=== PATIENT | male | born 1975 | race Caucasian/White ===

== ENCOUNTER 2018-09-24 07:57 | Emergency (ER) | payer BC ==
[2018-09-24] MEDS ORDERED: SODIUM CHLORIDE 0.9% 1,000 ML IV ONE (08:31)
[2018-09-24] MEDS ORDERED: DEXAMETHASONE 10 MG/ML VIAL IV STA (08:31)
[2018-09-24] MEDS ORDERED: AMPICILLIN/SULBACTAM 3 GM in SODIUM CHLORIDE 0.9% MINIBAG 100 ML IV STA (08:39)
--- NOTE | 2018-09-24 08:45 | ED Physician Documentation ---
History of Present Illness - Stated complaint Stated Complaint: SORE THROAT - Chief complaint Chief Complaint: Heent - Additonal information Additional information: hx from pt and 42 male to ED 2 concerns 1) severe sore throat - seen at walk in yesterday and + rapid strep an rx zmax but gettign worse 2) also he is s/p cochlear implant and has a hx mastoiditis and there is swelling erythema and discharge from the implant behind his R ear Review of Systems Constitutional: denies: Fever Ears: reports: Ear pain Throat: reports: Sore throat Respiratory: denies: Cough GI: denies: Nausea, Vomiting, Diarrhea Endocrine: denies: Easy bruising / bleeding Immunocompromised: denies: Immunocompromised PD PAST MEDICAL HISTORY - Past Surgical History Ortho: Other HEENT: Other - Present Medications Home Medications: Ambulatory Orders Medication Instructions Recorded Confirmed Amox/Clav 875/125 [Augmentin] 1 each PO Q12H #20 tablet 09/24/18 Azithromycin 1 09/24/18 Hydrocodone/Acetaminophen 1 09/24/18 [Hydrocodone-Acetamin 5-325 mg] - Allergies Allergies/Adverse Reactions: Allergies Allergy/AdvReac Type Severity Reaction Status Date / Time No Known Drug Allergies Allergy Verified 09/24/18 08:10 - Social History Does the pt smoke?: No Smoking Status: Never smoker Does the pt drink ETOH?: No Does the pt have substance abuse?: No PD ED PE NORMAL - Vitals Vital signs reviewed: Yes - HEENT HEENT: Other (marked erythema and swelling but no trismus or STEAM SHOVELMAN, no pain with tracheal manipulation, metal post emplanted to r mastoid region with focal STS and small purulent dc which was cultured, no erthythema warmth or bogginess). No: Ears normal (R serous otitis) - Neck Neck: Supple, no meningeal sign - Cardiac Cardiac: RRR - Respiratory Respiratory: No respiratory distress, Clear bilaterally - Derm Derm: Normal color - Neuro Neuro: Alert and oriented X 3 Results - Vitals Vitals: Vital Signs - 24 hr 09/24/18 09/24/18 09/24/18 08:06 09:47 12:40 Temperature 36.2 C L 36.4 C L Heart Rate 77 69 95 Respiratory 18 18 16 Rate Blood Pressure 155/95 H 152/81 H 140/92 H O2 Saturation 96 98 96 Oxygen O2 Source Room air - Labs Labs: Microbiology 09/24/18 08:25 Wound Culture - Preliminary Head PD MEDICAL DECISION MAKING - ED course ED course: strep throat with marked swelling but not STEAM SHOVELMAN - gave decadron and IVF also more concerning in infected cochlear implant post in mastoid that appears acutely infected no hx MRSA could be strep staph from ear/throat skin also could be psuedomonas for now have culture of dc pending gave IV unasyn no ENT services at 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) addendum - pt called me back and he was able to contact his prior ENT in [place] - per his report she agreed with the unasyn and augmentin, added a topical prescription antibiotic ointment, recommended he clean the site with 50/50 H2O2/H2O, she has recommended a "healing cap" to go over the hardware, and has referred him to a local [place] ENT Dr Conde Departure - Departure Disposition: 01 Home, Self Care Clinical Impression: BAHA cochlear implant bone infection Pharyngitis Qualifiers: Pharyngitis/tonsillitis etiology: unspecified etiology Qualified Code(s): J02.9 - Acute pharyngitis, unspecified Condition: Good Instructions: ED Strep Pharyngitis Conf Prescriptions: Amox/Clav 875/125 [Augmentin] 1 each PO Q12H #20 tablet Comments: The strep throat will improve with the antibiotics I am much more concerned about the infected cochlear implant. I am trying to consult a local ENT to see if it needs to be debrided or removed - or if it is OK to treat with antibiotics. I will call you when I have gotten input from the specialist - they may recommend you be admitted for IV antibiotics so you may have to come back later today if that is what they advise In the mean time take the augmentin I have prescribed Return to see me tomorrow morning at 8AM for a recheck - promise me you will come back a recheck because infected hardware in the skull could be a very serious issue Discharge Date/Time: 09/24/18 12:43
[2018-09-24] MEDS ORDERED: oxyCODONE 5 MG TABLET PO STA (12:23)
[2018-09-24 12:41] VITALS: BP 140/92
== END 2018-09-24 12:43 | disposition home or self-care (01) ==
LOC: ED 07:57
DX: J02.9 Acute pharyngitis, unspecified (principal); T85.79XA Infection and inflammatory reaction due to other internal prosthetic devices, implants and grafts, initial encounter; H66.91 Otitis media, unspecified, right ear
CPT/HCPCS: 87070; 87077; 87205; 96365; 99283; A9270

== ENCOUNTER 2019-02-08 15:02 | Outpatient (CLI) | payer BC | END 2019-02-08 15:03 | disposition home or self-care (01) | LOC: SC 15:02 | PROVIDERS: ATTEND Internal Medicine Pulmonary Disease | DX: G47.10 Hypersomnia, unspecified (principal); G47.8 Other sleep disorders; R06.81 Apnea, not elsewhere classified; R41.89 Other symptoms and signs involving cognitive functions and awareness; R06.83 Snoring | CPT/HCPCS: 99203; 99212 ==

== ENCOUNTER 2019-02-21 19:30 | Outpatient (CLI) | payer BC | END 2019-02-21 23:59 | disposition home or self-care (01) | LOC: SC 19:30 | PROVIDERS: ATTEND Internal Medicine Pulmonary Disease | DX: G47.33 Obstructive sleep apnea (adult) (pediatric) (principal) | CPT/HCPCS: 95806 ==

== ENCOUNTER 2019-04-19 09:19 | Outpatient (CLI) | payer BC ==
--- NOTE | 2019-04-19 09:40 | CONSULTATION NOTE ---
Information from patient questionnaire entered by Sasha Guadalupe. I have reviewed and concur with the information entered by Sasha Guadalupe. This document represents the service I personally performed and the decisions made by me, Ena Beebe RN, MSN, STEAMER TENDER. - History of Present Illness RAJEEV COSTELLO returns for follow up of the recently performed type 3 home sleep study (HST). The home sleep study showed obstructive sleep apnea / hypopnea with an AHI of 18.7 at 4% desaturation and lowest oxygen saturation of 74.6%. There were 129 scored apneas and 16 hypopneas with supine AHI 61.1 and non-supine AHI 10.0. The patient informed of these findings. I explained the pathophysiology behind obstructive sleep apnea. We then spent quite a bit of time discussing different treatment options. For mild obstructive sleep apnea, surgery and oral appliance are alternatives to nasal CPAP therapy but in moderate or severe cases, nasal CPAP is the most effective and reliable treatment. I reviewed the impact of weight changes on sleep apnea and strongly recommended losing weight. Patient has lost 6 pounds since seen. After some discussion, the patient opted to go with the nasal CPAP therapy. Nasal autoCPAP set at [id number] will be ordered with rationale explained. A manual titration study will be ordered if unable to find optimal pressure with office adjustments. I explained how CPAP machine works with sample devices RespirEventdoos Dreamstation and [email or web address] [id number] and what to expect when using the machine. Using CPAP every night in order to get used to it was emphasized. Patient advised to put CPAP mask on before getting into bed so as not to fall asleep without CPAP. To assist acclimation to CPAP use, it could also use for a short time during day while reading or watching TV. The patient was instructed to call the CPAP supplier to discuss any mechanical problem that may occur. If the mask given is uncomfortable or is difficult to keep on through the night even with adjustment, contact the CPAP supplier as many will replace with another mask style if notified before 30 days. If snoring or perceives is not getting enough air or too much air from the machine, notify this office. [facility] patient education PAP tips reviewed and given to patient. Patient counseled not drink alcohol less than 4 hours before bedtime as it can increase snoring and apnea. Patient was cautioned about risks of drowsy driving until sleepiness symptoms resolve. Patient has noted drowsiness on long distance driving. [facility] patient education on snoring and sleep apnea given and reviewed. Initial [place] Sleepiness Scale score: 10 Current [place] Sleepiness Scale score: 14 - Allergies/Medications No drug allergies known Currently taking: Levothyoxine Sodium 75mcg tab one daily MNS E Metabolic System Vitamins as directed Allergies and home medications reviewed: Yes - Review of Systems Review of systems same as previous: Yes Cardiovascular: denies: high blood pressure, palpitations, chest pain, irregular heart rate or pulse, leg or foot swelling, have to sleep sitting up, other: Respiratory: denies: shortness of breath, wheeze, sputum production, chronic cough, other: Gastrointestinal: denies: heartburn, difficulty swallowing, nausea, vomitting, diarrhea, abdominal pain, other: Urinary: denies: incontinence, frequency, urgency, impotence, other: Neurological: denies: headaches, seizure, head trauma, disorientation, speech dysfunction, gait or balance problems, fainting or unconsciousness, other: Psychiatric: denies: Attention Deficit Hyperactivity, anxiety, depression, mood disorder, claustrophobia, other: Ear/Nose/Throat: denies: nasal congestion, sinus problems, nose bleeds, dry mouth/throat, hoarseness, injury to nose, tonsillectomy, wisdom teeth removed, other: Endocrine: reports: thyroid disease. denies: history of goiter, sluggishness, too hot or cold, excessive thirst, increased appetite, increased urination, unexplained weakness, other: Musculoskeletal: denies: joint pain, neck pain, back pain, joint swelling, muscle pain or cramping, mobility problems, other: Immunologic: denies: sneezing, rash, itching, allergies to food or environment, other: - Physical Exam Blood Pressure: 130/80 Cuff size: long Heart Rate: 74 O2 Saturation: 98 Height: 5 ft 10.5 in Weight (kg): 103.873 kg (lost 6 pounds) Body Mass Index: 32.3 BMI Classification: Class 1 - Impression 1. Obstructive Sleep Apnea-Hypopnea Syndrome, moderate, with lowest oxygen saturation of 74.6. Obviously this is the cause of the patients symptoms of unrefreshed sleep, and excessive daytime sleepiness. As mentioned above, the patient will be started on nasal autoCPAP therapy with pressure set at 4-15 cmH2 O. A manual titration study will be completed if unable to find optimal treatment pressure with office adjustments. Compliance guidelines also reviewed. A copy of compliance guidelines will be given for reference at check out. Because the apnea is more severe supine, I instructed to avoid sleeping supine using pillow positioning until able to start CPAP use. He is also advised to avoid long distance driving until his sleepiness symptoms are resolved. - Plan Nasal autoCPAP therapy, pressure at 4-15 cm H2O. Attempt to lose weight. Avoid alcohol consumption near bedtime. Avoid supine sleep until using CPAP. The patient is again cautioned about driving until sleepiness completely resolves on CPAP therapy. Return one month after CPAP obtained. I will assess response to therapy and compliance at that time. I spent 100% of this 35 minute visit face to face with the patient with greater than 50% of this was spent time counseling the patient and coordination of care.
[2019-04-19 09:48] VITALS: BP 130/80
== END 2019-04-19 09:20 | disposition home or self-care (01) ==
LOC: SC 09:19
PROVIDERS: ATTEND Nurse Practitioner Family
DX: G47.33 Obstructive sleep apnea (adult) (pediatric) (principal)
CPT/HCPCS: 99212; 99214

== ENCOUNTER 2019-11-17 16:23 | Outpatient (CLI) | payer BC, OTHER ==
[2019-11-17 17:45] VITALS: BP 130/70
--- NOTE | 2019-11-17 17:45 | SLEEP CARE CONSULTATION ---
Information from patient questionnaire entered by Kenzie Campos. I have reviewed and concur with the information entered by Kenzie Campos. This document represents the service I personally performed and the decisions made by me, Ena Beebe, RN, MSN, BUSINESS SERVICES REPRESENTATIVE. History of Present Illness Previous diagnosis: Moderate, Obstructive Sleep Apnea-Hypopnea Syndrome AHI: 18.7 Reason for follow up: first compliance Equipment type: CPAP Equipment obtained from: [employer] Mask style: Nasal pillows Mask brand: Respironics Backup mask available: No (keep current mask when replaced ) Last cushion change: not since set up HPI additional information: There was a delay in getting patient set up with CPAP. Initially his prescription was sent to [place] but never set up on appointment given. Calls placed by patient and no return calls. Called here and staff called and left messaged that was not returned. Patient called a month later and still not set up. After several calls, patient was transfered to [facility] and then there was another delay and finally set up 09/14/19 even though he told them his insurance would change in September. Now his insurance has changed in September to [employer]. He was informed by [facility] that they did not take [employer] and he has not been able to get more supplies. CPAP Compliance Data - Data Reviewed with Patient Average duration of nightly device use: 6.75 Compliance rate %: 83.3 Current pressure setting (cmH2O): 4-15 Humidity settin Heated hose settin Average residual AHI: 3.2 Average large leak: 2 sec Subjective Patient concerns: reports: condensation in mask/hose (recent), other (mask starting to get looser ). denies: mask discomfort, air blowing in eyes, mask leak noise Observed to snore while using device: No Current pressure setting perceived as: comfortable On therapy, patient: reports: sleeping better, awakening more refreshed, being more awake and alert during the day, more rested overall (however, he is in s chool as well as working. ). denies: drowsiness while driving Initial [place] Sleepiness Scale score: 10 Current [place] Sleepiness Scale score: 10 Allergies and Home Medications Known drug allergies: No Home medication list reviewed: Yes (added escitalopram , atorvastatin / no other changes ) Review of Systems Review of systems same as previous: No (diagnosed with anxiety / depression and high cholesterol ) Physical Exam Blood Pressure: 130/70 Cuff size: long Heart Rate: 83 O2 Saturation: 98 Height: 5 ft 10.5 in Weight: 235 lb Weight change since last visit: gained baCK 6 POUNDS Body Mass Index: 33.2 BMI Classification: Obese Impression and Plan 1. Obstructive Sleep Apnea-Hypopnea Syndrome, moderate , with good treatment compliance and good apnea control. On CPAP therapy, the patient has better sleep quality and is more rested overall. Since he is planning on losing weight, I will not change the CPAP pressure to mean / 90% average. I explained how significant weight loss will reduce his apnea risk and CPAP pressure requirements. Symptoms to report for further pressure adjustment discussed. For recent condensation, I showed him how to increase the heated hose with rationale discussed. Nasal congestion can be reduced with increasing the CPAP humidity as shown on sample device. The heated hose can be adjusted higher if condensation with higher humidity setting. Saline nasal spray sample can also be used prior to CPAP to clear nasal secretions and wash off any nasal allergens to facilitate nasal breathing. In addition, a steamy shower before bed will often assist nasal drainage. Printed instructions given on how to change humidity and heated hose settings with rationale explaining why to change. Nasal cushions are getting looser in fit despite headgear adjustment probably due to wear and need for replacement. Thus I will update CPAP supplies. Patient's apnea severity and rationale for treatment to reduce apnea, improve sleep quality and reduce cardiovascular and cerebrovascular events was reviewed. I also reviewed the benefit of consistent device use of CPAP for depression/anxiety. Since patient has more severe apnea in supine position, patient advised to avoid supine sleep with pillow positioning if unable to use CPAP while ill or if without electricity to reduce apnea risk. After discussion,it was determined that patient has already contacted [employer] and was informed that they take 13 months to pay off the CPAP. Thus patient will have to turn in his current CPAP back to [facility] and restart with [facility] which is preferred by [facility]. I advised patient to keep current CPAP until new one received if possible to for best control of apnea and moderate hypoxia desaturations. He would like to use the Dreamstation CPAP and will be placed on prescription. * Continue CPAP pressure at 4-15 cmH2O * Transfer to [facility] and new CPAP * update CPAP supplies * Implement methods to reduce nasal congestion * Notify me if snoring with mask or feeling that the pressure is too much or too little * Attempt to lose weight * Call this office if any problems using CPAP * Return for follow up in 1 month after new device, or sooner if concerns arise Time Spent with Patient (minutes): 40 I spent 100% of this visit face to face with the patient with greater than 50% of this was spent time counseling the patient and coordination of care.
== END 2019-11-17 16:24 | disposition home or self-care (01) ==
LOC: SC 16:23
PROVIDERS: ATTEND Nurse Practitioner Family
DX: G47.33 Obstructive sleep apnea (adult) (pediatric) (principal); E66.9 Obesity, unspecified; Z68.33 Body mass index [BMI] 33.0-33.9, adult
CPT/HCPCS: 99212; 99215

== ENCOUNTER 2020-01-20 13:23 | Outpatient (CLI) | payer OTHER ==
--- NOTE | 2020-01-20 12:18 | SLEEP CARE CONSULTATION ---
Information from patient questionnaire entered by Sasha Guadalupe. I have reviewed and concur with the information entered by Sasha Guadalupe. This document represents the service I personally performed and the decisions made by me, Ena Beebe, RN, MSN, COSMETIC ASSEMBLER. History of Present Illness Service Date and Time: 01/20/2020 1130 Previous diagnosis: Moderate, Obstructive Sleep Apnea-Hypopnea Syndrome AHI: 18.7 Reason for follow up: first compliance Equipment type: CPAP Equipment obtained from: [facility] (replacement device due to insurance change) Mask style: Nasal pillows (Dreamwear) Backup mask available: No (keep current mask when replaced as spare) Last cushion change: 2 weeks Type of Sleep Study: Home sleep study HPI additional information: [facility] has not picked up old CPAP yet. Patient wonders if due to COVID. CPAP Compliance Data - Data Reviewed with Patient Average duration of nightly device use: 7h 2m Compliance rate %: 90 Current pressure setting (cmH2O): 4-15 Humidity settin Heated hose settin Average residual AHI: 3.0 (90% 11.4cm H20 and average 8cmH20) Average large leak: 2s Subjective Patient concerns: reports: dry mouth, nose, throat (dry mouth when awakens - moderate), other (reservoir not working - and replacement in mail ). denies: aerophagia, mask discomfort, air blowing in eyes, mask leak noise, condensation in mask/hose, nasal congestion, epistaxis Observed to snore while using device: No Current pressure setting perceived as: too low (at initiation of treatment) On therapy, patient: reports: sleeping better, awakening more refreshed, being more awake and alert during the day, more rested overall. 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 Obstructive Sleep Apnea-Hypopnea Syndrome, moderate, with good treatment compliance and good apnea control. On CPAP therapy, the patient has better sleep quality and is more rested overall. For air hunger, I will increase his pressure to [id number]. He is to contact me if insufficient or if uncomfortable. Oral dryness can be reduced by adjusting humidity setting higher or heated hose lower or by adjusting both settings. Verbal instructions given on how to change humidity and heated hose settings with rationale explaining why to change. I will have [facility] contact to see if further concerns. Patient advised that chronic oral dryness can affect dental health and advised to follow up with dentist. In addition, there are oral dryness products that can be used to reduce dryness such as Biotene products, Dry mouth rinse and Xylomelts. Patient to discuss best option with dentist. Patient has gained weight. Currently patients BMI is 34.6 obesity class . Obesity increases the risk of apnea, CPAP pressure requirements and overall health risks especially cardiovascular and diabetes. Thus patient is advised to lose weight. Weight loss can be done with reducing portion size, reducing refined foods and balancing content with vegetables, fruit and protein. In addition tracking food intake will allow awareness of how to modify diet to achieve weight loss goals. Also eating more slowly will allow more awareness of food intake and enjoyment of food while assisting patient to modify intake at each meal. A diet consultation can be helpful in achieving optimal weight loss goals. . Patient encouraged to discuss their weight loss goals with their PCP and consider a referral to a nutrition services manager if unable to lose weight. He is starting new exercise program with son, he hopes will also help. The patient's CPAP pressure range should accommodate some weight loss. Symptoms to report for additional pressure adjustment discussed. Patient's apnea severity and rationale for treatment to reduce apnea, improve sleep quality and reduce cardiovascular and cerebrovascular events was reviewed. He is to contact [facility] again to return old CPAP from use with previous insurance that he used until set up with [facility]. He is to contact [facility] if new reservoir is not delivered as planned. * [employer] CPAP pressure to 8-12 cmH2O * Implement methods to reduce oral dryness. * Notify me if snoring with mask or feeling that the pressure is too much or too little * Attempt to lose weight * Contact [facility] to return old CPAP * Call this office if any problems using CPAP * Return for follow up in 6 months , or sooner if concerns arise Visit Type: Telehealth Phone (to minimize risk of Covid 19 exposure.) Patient Location: Home Location of Provider: Home Patient agrees and consents to this telehealth visit type: Yes Patient agrees to have their insurance billed: Yes Time Spent with Patient (minutes): 29 Provider Statement: I spent 100% of the Telehealth Phone Call with the patient with greater than 50% spent counseling the patient and coordination of care.
== END 2020-01-20 13:24 | disposition home or self-care (01) ==
LOC: SC 13:23
PROVIDERS: ATTEND Nurse Practitioner Family
DX: G47.33 Obstructive sleep apnea (adult) (pediatric) (principal); E66.9 Obesity, unspecified; Z68.34 Body mass index [BMI] 34.0-34.9, adult

== ENCOUNTER 2020-07-22 12:42 | Outpatient (CLI) | payer OTHER | END 2020-07-22 12:43 | disposition EMS.NT | LOC: EMS 12:42 | PROVIDERS: ATTEND Surgery | DX: R51.9 Headache, unspecified (principal); R11.0 Nausea ==

== ENCOUNTER 2020-07-22 13:17 | Emergency (ER) | payer OTHER ==
[2020-07-22] MEDS ORDERED: HYDROmorphone 1 MG/ML CARPUJECT IVP STA (13:31)
[2020-07-22] MEDS ORDERED: ONDANSETRON 4 MG/2 ML VIAL IVP STA (13:31)
--- NOTE | 2020-07-22 13:34 | ED Physician Documentation ---
PD HPI HEADACHE - Stated complaint Stated Complaint: HEADACHE/CHILLS - Chief complaint Chief Complaint: Neuro - History obtained from History obtained from: Patient - Additional information Additional information: 44-year-old gentleman with history of hypercholesterolemia and hypothyroidism presents with abrupt onset headache at 12:06 PM with mild confusion. He has had chills and sweats. Pain is waxing and waning. Nothing makes it better or worse. Associated with nausea and vomiting. Review of Systems Ten Systems: 10 systems reviewed and negative Constitutional: reports: Chills, Sweats Nose: denies: Rhinorrhea / runny nose, Congestion Cardiac: denies: Chest pain / pressure Respiratory: denies: Dyspnea, Cough GI: reports: Nausea, Vomiting PD PAST MEDICAL HISTORY - Past Medical History Past Medical History: Yes Cardiovascular: High cholesterol Endocrine/Autoimmune: HyPOthyroidism - Past Surgical History Past Surgical History: Yes Ortho: Other HEENT: Other - Present Medications Home Medications: Ambulatory Orders Medication Instructions Recorded Confirmed Ascorbic Acid [Vitamin C] 07/22/20 Atorvastatin [Lipitor] 20 mg ORAL 07/22/20 Levothyroxine [Synthroid] 75 mcg PO QDAC 07/22/20 07/22/20 SUMAtriptan [Imitrex] 25 mg PO BID PRN #10 tablet 07/22/20 - Allergies Allergies/Adverse Reactions: Allergies Allergy/AdvReac Type Severity Reaction Status Date / Time No Known Drug Allergies Allergy Verified 07/22/20 13:30 - Social History Does the pt smoke?: No Smoking Status: Never smoker Does the pt drink ETOH?: No Does the pt have substance abuse?: Yes Substance Use and Type: Marijuana - Immunizations Immunizations are current?: Yes PD ED PE NORMAL - Vitals Vital signs reviewed: Yes - General General: Other (He appears uncomfortable and very slightly confused although formally he is alert and oriented x3 albeit slightly slow to answer questions. Preferring to keep his eyes closed.) - HEENT HEENT: PERRL, EOMI - Neck Neck: Supple, no meningeal sign, No bony TTP - Cardiac Cardiac: RRR, No murmur - Respiratory Respiratory: No respiratory distress, Clear bilaterally - Abdomen Abdomen: Normal bowel sounds, Soft, Non tender - Back Back: No CVA TTP, No spinal TTP - Derm Derm: Normal color, Warm and dry - Extremities Extremities: No edema, No calf tenderness / cord - Neuro Neuro: Alert and oriented X 3 Eye Opening: To Voice Motor: Obeys Commands Verbal: Oriented GCS Score: 14 Results - Vitals Vitals: Vital Signs - 24 hr 07/22/20 07/22/20 07/22/20 13:26 13:40 13:46 Temperature 36.8 C Heart Rate 68 72 73 Respiratory 20 16 22 Rate Blood Pressure 166/78 H 148/88 H 148/88 H O2 Saturation 98 99 97 07/22/20 07/22/20 07/22/20 14:03 14:05 14:30 Temperature Heart Rate 71 68 62 Respiratory 18 18 18 Rate Blood Pressure 159/78 H 159/78 H 141/77 H O2 Saturation 94 96 97 07/22/20 07/22/20 07/22/20 15:00 15:30 16:00 Temperature Heart Rate 62 57 L 56 L Respiratory 15 13 12 Rate Blood Pressure 143/90 H 149/81 H 148/81 H O2 Saturation 96 100 98 Oxygen O2 Source Room air - Labs Labs: Microbiology 07/22/20 14:50 CSF Culture - Preliminary Cerebral Spinal Fluid Laboratory Tests 07/22/20 07/22/20 07/22/20 13:39 13:39 13:39 WBC 6.6 RBC 5.12 Hgb 15.7 Hct 46.9 MCV 91.6 MCH 30.7 MCHC 33.5 RDW 12.4 Plt Count 221 MPV 10.1 Neut # (Auto) 4.4 Lymph # (Auto) 1.3 L [place] # (Auto) 0.6 Eos # (Auto) 0.1 Baso # (Auto) 0.0 Absolute Nucleated RBC 0.00 Nucleated RBC % 0.0 PT 12.5 INR 1.1 Sodium 141 Potassium 3.5 Chloride 103 Carbon Dioxide 27 Anion Gap 11.0 BUN 13 Creatinine 0.9 Estimated GFR (MDRD) 91 Glucose 122 H Calcium 9.2 Total Bilirubin 0.5 AST 35 ALT 64 H Alkaline Phosphatase 82 Total Protein 7.9 Albumin 4.4 Globulin 3.5 Albumin/Globulin Ratio 1.3 CSF Color CSF Clarity Xanthrochromic CSF WBC CSF RBC CSF Cell Count Tube # CSF Glucose CSF Total Protein 07/22/20 14:50 WBC RBC Hgb Hct MCV MCH MCHC RDW Plt Count MPV Neut # (Auto) Lymph # (Auto) [place] # (Auto) Eos # (Auto) Baso # (Auto) Absolute Nucleated RBC Nucleated RBC % PT INR Sodium Potassium Chloride Carbon Dioxide Anion Gap BUN Creatinine Estimated GFR (MDRD) Glucose Calcium Total Bilirubin AST ALT Alkaline Phosphatase Total Protein Albumin Globulin Albumin/Globulin Ratio CSF Color COLORLESS CSF Clarity CLEAR Xanthrochromic ABSENT CSF WBC 2 CSF RBC 0 CSF Cell Count Tube # CSF TUBE# 3 CSF Glucose 81 H CSF Total Protein 43 - Rads (name of study) Ct/CTA head Radiology: EMP read contemporaneously (Noncontrast portions of the study are normal. There is a 3 mm TAYA aneurysm versus infundibulum.) Procedures - Lumbar Puncture Position: Sitting Location: L3-L4, Midline approach Anesthesia: Local lidocaine CSF: Clear Other: Sterile prep and drape, Patient tolerated well, No complications PD MEDICAL DECISION MAKING - ED course ED course: 44-year-old gentleman presents with acute new onset severe headache, the pattern is very concerning for a vascular etiology such as subarachnoid hemorrhage. He was taken immediately over for a CT angiogram of his head which was negative for bleed but did find 3 mm TAYA aneurysm versus infundibulum. This was followed with an LP which was without significant red or white cells ruling out subarachnoid hemorrhage. He had some improvement with narcotic pain medication here but was pain-free after Reglan suggesting that the true cause was migrainous. Departure - Departure Disposition: 01 Home, Self Care Clinical Impression: Headache Qualifiers: Headache type: unspecified Headache chronicity pattern: acute headache Int ractability: intractable Qualified Code(s): R51.9 - Headache, unspecified Condition: Good Record reviewed to determine appropriate education?: Yes Instructions: ED Cephalgia Unspecified Prescriptions: SUMAtriptan [Imitrex] 25 mg PO BID PRN #10 tablet PRN Reason: Headache Comments: Your headache was concerning for subarachnoid hemorrhage, this is ruled out based on the negative lumbar puncture. 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 This needs to get followed up with a neurosurgeon, my suggestion would be to follow-up at [facility] which does an excellent job of this. The phone number is [phone]. When you go to that appointment, make sure to take the copy of the CAT scan on CD with you. While you did have a decrease in your pain with the narcotic pain medication, the resolution of your pain with metoclopramide/Reglan is suggestive of a migrainous etiology. Return if worse.
[2020-07-22 13:42] LABS: BASOPHILS % (AUTO) 0.6 %; EOSINOPHILS # (AUTO) 0.1 10^3/uL (0.0-0.7); EOSINOPHILS % (AUTO) 2.1 %; HGB - HEMOGLOBIN 15.7 g/dL (14.0-18.0); LYMPHOCYTES # (AUTO) 1.3 10^3/uL (1.5-3.5); LYMPHOCYTES % (AUTO) 20.1 %; MEAN CORPUSCULAR HEMOGLOBIN 30.7 pg (27.0-31.0); MEAN CORPUSCULAR HGB CONC 33.5 g/dL (32.0-36.0); MEAN CORPUSCULAR VOLUME 91.6 fL (80.0-94.0); MEAN PLATELET VOLUME 10.1 fL (7.4-11.4); MONOCYTES # (AUTO) 0.6 10^3/uL (0.0-1.0); MONOCYTES % (AUTO) 9.3 %; NEUTROPHILS # (AUTO) 4.4 10^3/uL (1.5-6.6); NEUTROPHILS % (AUTO) 67.6 %; PLT - PLATELET COUNT 221 10^3/uL (130-450); RED BLOOD COUNT 5.12 10^6/uL (4.70-6.10); RED CELL DISTRIBUTION WIDTH 12.4 % (12.0-15.0); WHITE BLOOD COUNT 6.6 x10^3/uL (4.8-10.8)
[2020-07-22] MEDS ORDERED: IOVERSOL 320 100 ML VIAL IVP ONE ×2 (13:50→15:43)
[2020-07-22 13:55] LABS: INR 1.1 (0.8-1.2); PT - PROTHROMBIN TIME 12.5 secs (9.9-12.6)
[2020-07-22 13:57] LABS: ALBUMIN 4.4 g/dL (3.2-5.5); ALBUMIN/GLOBULIN RATIO 1.3 (1.0-2.2); BILIRUBIN,TOTAL 0.5 mg/dL (0.2-1.0); CALCIUM 9.2 mg/dL (8.5-10.3); CREATININE 0.9 mg/dL (0.6-1.2); TOTAL PROTEIN 7.9 g/dL (6.7-8.2)
--- NOTE | 2020-07-22 14:36 | CT Report ---
PROCEDURE: ANGIO HEAD W/WO INDICATIONS: Worst headache of life CONTRAST: IV CONTRAST: Optiray 320 ml: 80 PO CONTRAST: *NO PO CONTRAST TECHNIQUE: Precontrast 4.5 mm thick angled axial sections acquired from the foramen magnum to the vertex. Afte r the administration of intravenous contrast, 1 mm thick sections acquired through the [place] of [place] is. Postcontrast 4.5 mm thick sections then re-acquired from the foramen magnum to the vertex. 3-di mensional qugzaiq-sljclbopg-mjdoczhkcm (MIP) and/or volume rendering reformats were acquired of the c entral intracranial vasculature. For radiation dose reduction, the following was used: automated ex posure control, adjustment of mA and/or kV according to patient size. COMPARISON: None FINDINGS: Image quality: Excellent. Anterior circulation: Intracranial internal carotid arteries are normal in size and flow. The flow within the paired anterior cerebral arteries is normal and symmetric. The flow within the middle cer ebral arteries is normal and symmetric. The anterior communicating artery is seen. Along the anterior commuting artery, there is a superiorly directed anterior communicating artery ane urysm that measures up to 3 mm, which is best seen on series 23 image 77. Posterior circulation: Visualized portions of the vertebral arteries demonstrate normal caliber, and join to form a normal appearing basilar artery. Flow within the posterior cerebral arteries is norm al and symmetric. No aneurysms are seen. CSF spaces: Ventricles are normal in size and shape. Basal cisterns are patent. No extra-axial flu id collections. Brain: No midline shift. No intracranial bleeds or masses. Mota-white matter interface appears int act. Skull and face: Calvarium and facial bones appear intact, without suspicious lesions. Sinuses: Visualized sinuses and mastoids are clear. There is moderate rightward nasal septal deviat ion seen. IMPRESSION: No intracranial hemorrhage is seen. No acute intracranial abnormality is seen. Apparent 3 mm anterior communicating artery aneurysm. Differential diagnosis includes an infundibulum . Please consider an MR angiogram or a catheter based angiogram for further evaluation/confirmation. Reviewed by: Jon Ruiz MD on 07/22/2020 1:35 PM LEONARDO Approved by: Jon Ruiz MD on 07/22/2020 1:35 PM AKJIN Station ID: [id number]
[2020-07-22] MEDS ORDERED: HYDROmorphone 0.5 MG/0.5 ML SYRINGE IVP STA (14:47)
[2020-07-22 15:21] LABS: CSF - GLUCOSE 81 mg/dL (45-70)
[2020-07-22 15:28] LABS: CLARITY,CSF CLEAR (CLEAR); COLOR,CSF COLORLESS (COLORLESS); CSF TUBE # CSF TUBE# 3; CSF XANTHOCHROMIA ABSENT (ABSENT)
[2020-07-22 15:29] LABS: RED BLOOD CELL,CSF 0 /mm^3 (0-1); WHITE BLOOD CELL,CSF 2 /mm^3 (0-5)
[2020-07-22] MEDS ORDERED: METOCLOPRAMIDE 10 MG/2 ML VIAL IVP STA (15:36)
[2020-07-22 16:35] VITALS: BP 148/90
== END 2020-07-22 16:35 | disposition home or self-care (01) ==
LOC: ED 13:17
DX: I67.1 Cerebral aneurysm, nonruptured (principal); R51.9 Headache, unspecified
CPT/HCPCS: 36415; 62270; 70496; 80053; 82945; 84157; 85025; 85610; 87070; 87205; 89051; 96374; 96375; 96376; 99284; J1170; J2765; Q9967

== ENCOUNTER 2020-08-15 09:44 | Outpatient (CLI) | payer OTHER ==
--- NOTE | 2020-08-15 10:10 | SLEEP CARE CONSULTATION ---
Information from patient questionnaire entered by Kenzie Campos. I have reviewed and concur with the information entered by Kenzie Campos. This document represents the service I personally performed and the decisions made by me, iLndsay Phillips ARNP. History of Present Illness Service Date and Time: 08/15/2020 0944 Previous diagnosis: Moderate, Obstructive Sleep Apnea-Hypopnea Syndrome AHI: 18.7 (in 2019) Reason for follow up: other (7 month) Equipment type: CPAP Equipment obtained from: [email or web address] (supplies okay, hard time getting heating element issue fixed) Mask style: Nasal pillows (small fits better than medium) Mask brand: Respironics (Dreamwear) Backup mask available: Yes (other mask) Last cushion change: night Prior sleep studies: Yes Year and Where: 2018 Sleep Type of Sleep Study: Home sleep study HPI additional information: RAJEEV COSTELLO was diagnosed to have moderate, AHI 18.7, obstructive sleep apnea- hypopnea syndrome and returned today for CPAP therapy seven month follow-up. CPAP Compliance Data - Data Reviewed with Patient Average duration of nightly device use: 7 hr 30 min Compliance rate %: 77.8 (180 days) Current pressure setting (cmH2O): 8-12 Humidity settin Heated hose settin Average residual AHI: 3.5 Average large leak: 42 sec Compliance data discussion: He had his machine change to a Dreamstation in Oct 2019 but the heating element has not worked for the humidifier since he got the machine. He has tried multiple times to have this fixed but has not been able to get the issue resolved. Subjective Patient concerns: reports: nasal congestion. denies: aerophagia, mask discomfort, air blowing in eyes, mask leak noise, condensation in mask/hose, dry mouth, nose, throat, epistaxis, other Observed to snore while using device: No Current pressure setting perceived as: comfortable On therapy, patient: reports: sleeping better, awakening more refreshed, being more awake and alert during the day, more rested overall. denies: drowsiness while driving Initial [place] Sleepiness Scale score: 10 (in 2019) Current [place] Sleepiness Scale score: 6 Allergies and Home Medications Drug allergies reviewed: Yes (NKDA) Home medication list reviewed: Yes (taking new medication 4 days ago, cannot remember name) Review of Systems Review of systems same as previous: No (small aneurysm in head found in Jun 2020, no bleeding now) Physical Exam Heart Rate: 72 O2 Saturation: 98 Height: 5 ft 10.5 in Weight: 236 lb Body Mass Index: 33.3 BMI Classification: Obese Impression and Plan 1. Obstructive Sleep Apnea-Hypopnea Syndrome, moderate, with good treatment compliance and good apnea control. On CPAP therapy, the patient has better sleep quality and is more rested overall. Patient has been unable to use the humidifier appropriately because the heating element has not worked since gettin g the machine earlier this year. I will write a prescription to service machine due to malfunctioning heating element of the humidifier. He also has some issue with nasal congestion at the beginning of night and in the morning. Nasal congestion can be reduced with increasing the CPAP humidity as shown on sample device. The heated hose can be adjusted higher if condensation with higher humidity setting. Saline nasal spray sample was also given to use prior to CPAP to clear nasal secretions and wash off any nasal allergens to facilitate nasal breathing. In addition, a steamy shower before bed will often assist nasal drainage. Patient's apnea severity and rationale for treatment to reduce apnea, improve sleep quality and reduce cardiovascular and cerebrovascular events was reviewed. I also reviewed the benefit of consistent device use of CPAP for cerebrovascular disease. I reviewed with patient that weight loss will improve his overall health and help to reduce apnea index/severity. * Continue autoCPAP pressure at 8-12 cmH2O * Service APAP machine * Notify me if snoring with mask or feeling that the pressure is too much or too little * Attempt to lose weight * Call this office if any problems using CPAP * Return for follow up in 1 year, or sooner if concerns arise Counseling Topics: Spare mask, Weight loss health impact Visit Type: In Office Time Spent with Patient (minutes): 20 Provider Statement: I spent 100% of the Face to Face Visit with the patient with greater than 50% spent counseling the patient and coordination of care.
== END 2020-08-15 09:45 | disposition home or self-care (01) ==
LOC: SC 09:44
PROVIDERS: ATTEND Nurse Practitioner Family
DX: G47.33 Obstructive sleep apnea (adult) (pediatric) (principal); E66.9 Obesity, unspecified; Z68.33 Body mass index [BMI] 33.0-33.9, adult
CPT/HCPCS: 99212; 99213

== ENCOUNTER 2021-04-10 09:10 | Outpatient (CLI) | payer OTHER ==
--- NOTE | 2021-04-10 09:53 | SLEEP CARE CONSULTATION ---
Information from patient questionnaire entered by Carmelo Arreola. I have reviewed and concur with the information entered by Carmelo Arreola. This document represents the service I personally performed and the decisions made by me, Lindsay Phillips ARNP. History of Present Illness Service Date and Time: 04/10/2021 0910 Previous diagnosis: Moderate, Obstructive Sleep Apnea-Hypopnea Syndrome AHI: 18.7 (in 2019) Reason for follow up: other (last 3-4 months he is having a coughing issue, throat scratchy within 10 mins of putting on) Equipment type: CPAP Equipment obtained from: [employer] (getting supplies as needed) Mask style: Nasal pillows (small fits better than medium) Backup mask available: Yes (old mask) Last cushion change: 1 week ago Prior sleep studies: Yes Year and Where: 2018 [facility] Type of Sleep Study: Home sleep study HPI additional information: RAJEEV COSTELLO was diagnosed to have moderate, AHI 18.7, obstructive sleep apnea- hypopnea syndrome and returned today for CPAP therapy 9 month, device issues follow-up. CPAP Compliance Data - Data Reviewed with Patient Average duration of nightly device use: 7 hrs 27 mins Compliance rate %: 78.9 Current pressure setting (cmH2O): 8-12 Humidity settin Heated hose settin Average residual AHI: 3.5 Average large leak: 27 secs Subjective Patient concerns: reports: dry mouth, nose, throat (throat), other (Coughing while sleeping). denies: aerophagia, mask discomfort, air blowing in eyes, mask leak noise, condensation in mask/hose, nasal congestion, epistaxis Observed to snore while using device: No Current pressure setting perceived as: comfortable On therapy, patient: reports: sleeping better, awakening more refreshed, being more awake and alert during the day, more rested overall. denies: drowsiness while driving Initial [place] Sleepiness Scale score: 10 (in 2019) Current [place] Sleepiness Scale score: 10 Allergies and Home Medications Home medication list reviewed: Yes (no changes) Review of Systems Review of systems same as previous: Yes (no changes) Physical Exam Heart Rate: 67 O2 Saturation: 98 Height: 5 ft 10.5 in Weight: 256 lb Body Mass Index: 36.2 BMI Classification: Obese Impression and Plan 1. Obstructive Sleep Apnea-Hypopnea Syndrome, moderate, with good treatment compliance and good apnea control. On CPAP therapy, the patient has better sleep quality and is more rested overall. Patient has been having in the last 3 to 4 months a cough that is waking him up. He states it starts about 10 minutes after he is starting to use his CPAP machine. It resolves with stopping use of his machine. This is affecting his compliance. He has a DreamStation that may be on the [employer] recall. He has not noticed any black particles in the tubing or mask. He appears to be getting upper airway irritation from use of his CPAP that is on the recall. I advised patient that he may choose to stop using the CPAP until it is replaced to limit his risks or continue using the device if he cannot sleep without it. His device is no longer meeting his needs and he would like to try to get a replacement device. I discussed with patient that his insurance may not agree to pay for a replacement device but we can request it. If they do not and he chooses to continue use of the machine, he can try to obtain an inline filter to try to reduce any particles he may be getting from his machine and reduce upper airway irritation. I encouraged patient to also go on and register his device on the [employer] website. He voiced understanding and agreement with this plan of care. If he does get a new device will follow up one month after he obtains the new device. Patient's apnea severity and rationale for treatment to reduce apnea, improve sleep quality and reduce cardiovascular and cerebrovascular events was reviewed. I also reviewed the benefit of consistent device use of CPAP for cerebrovascular disease. * Continue auto CPAP pressure at 8-12 cmH2O * Replacement device due to upper airway irritation possibly from recalled Dreamstation * Notify me if snoring with mask or feeling that the pressure is too much or too little * Attempt to lose weight * Call this office if any problems using CPAP * Return for follow up one month after obtaining new device, or sooner if concerns arise Counseling Topics: Spare mask, Weight loss health impact Visit Type: In Office Time Spent with Patient (minutes): 26 Provider Statement: I spent 100% of the Face to Face Visit with the patient with greater than 50% spent counseling the patient and coordination of care.
== END 2021-04-10 09:11 | disposition home or self-care (01) ==
LOC: SC 09:10
PROVIDERS: ATTEND Nurse Practitioner Family
DX: G47.33 Obstructive sleep apnea (adult) (pediatric) (principal); E66.9 Obesity, unspecified; Z68.36 Body mass index [BMI] 36.0-36.9, adult
CPT/HCPCS: 99212; 99213

== ENCOUNTER 2023-08-05 16:10 | Outpatient (CLI) | payer OTHER ==
--- NOTE | 2023-08-05 16:44 | Sleep Patient Instructions ---
Sleep Center Visit Summary - Patient Visit Information Reason for Visit: Annual Visit - Patient Instructions Additional Instructions: You will continue with CPAP therapy with pressure set at 8-12 cmH2O. A supply prescription will be updated with your DME. We encourage you to continue to try to lose weight. Please follow up with the sleep care office in 1 year. - Clinic Information Contact: [facility] [address] [place] [address] [email or web address] T: [phone]
[2023-08-05 16:51] VITALS: BP 124/72; O2SAT 98
--- NOTE | 2023-08-05 16:51 | SLEEP CARE CONSULTATION ---
Information from patient questionnaire entered by Blessing Hutton. I have reviewed and concur with the information entered by Blessing Hutton. This document represents the service I personally performed and the decisions made by me, Lindsay Phillips ARNP. History of Present Illness Service Date and Time: 08/05/2023 1610 Previous diagnosis: Moderate, Obstructive Sleep Apnea-Hypopnea Syndrome AHI: 18.7 (in 2018) Reason for follow up: annual (LAST SEEN 03/2021) Equipment type: CPAP (Airsense 10, s/u 07/2021) Equipment obtained from: [employer] (getting supplies as needed; long hold times on phone) Mask style: Nasal pillows Mask brand: Respironics (Dreamwear, medium headgear and medium cushion) Backup mask available: Yes Last cushion change: couple months [facility]: Yes [facility] Type of Sleep Study: Home sleep study HPI additional information: RAJEEV COSTELLO was diagnosed to have moderate, AHI 18.7, obstructive sleep apnea- hypopnea syndrome and returned today for CPAP therapy annual follow-up. Sleep Study - Results Type of Sleep Study: Home sleep study [facility]: Yes [facility] CPAP Compliance Data - Data Reviewed with Patient Average duration of nightly device use: 7 HRS 54 MINS Compliance rate %: 98 (08/04/2022-08/03/23; 360/365 days used) Current pressure setting (cmH2O): 8-12 Average residual AHI: 2.6 Central apnea: 0.2 Obstructive apnea: 2 Average large leak: 0 L/min Subjective Patient concerns: reports: condensation in mask/hose (just at night onset), dry mouth, nose, throat (dry nose). denies: aerophagia, mask discomfort, air blowing in eyes, mask leak noise, nasal congestion, epistaxis Observed to snore while using device: No Current pressure setting perceived as: comfortable On therapy, patient: reports: sleeping better, awakening more refreshed, being more awake and alert during the day, more rested overall. denies: drowsiness wh ile driving Initial [place] Sleepiness Scale score: 10 (in 2018) Current [place] Sleepiness Scale score: 6 (08/05/23) Allergies and Home Medications Known drug allergies: No Drug allergies reviewed: Yes Home medication list reviewed: Yes (no changes) Allergy and home medication list: Allergies No Known Drug Allergies Allergy (Verified 08/04/23 11:02) Review of Systems Review of systems same as previous: Yes (NO CHANGE) Physical Exam Vital signs obtained and entered by: BLESSING Rangel MA Blood Pressure: 124/72 (LEFT ARM) Cuff size: regular Heart Rate: 64 O2 Saturation: 98 Height: 5 ft 10 in Weight: 226 lb 6.4 oz Body Mass Index: 32.5 BMI Classification: Obese Impression and Plan 1. Obstructive Sleep Apnea-Hypopnea Syndrome, moderate, with good treatment compliance and good apnea control. On CPAP therapy, the patient has better sleep quality and is more rested overall. Patient has significant improvement of their sleep apnea and is satisfied with current CPAP therapy. He has got a little bit of dry nose a couple of times a week. He states in the last 3 months he has had a little bit of liquid on the nasal pillows that he has to wipe away and then he is good for the night. He denies any condensation gathering in the tubes or in the mask itself. Patient's apnea severity and rationale for treatment to reduce apnea, improve sleep quality and reduce cardiovascular and cerebrovascular events was reviewed. I also reviewed the benefit of consistent device use of CPAP for cerebrovascular disease. 2. Obesity, unspecified. Currently patients BMI is 32.5. Obesity increases the risk of apnea, CPAP pressure requirements and overall health risks especially cardiovascular and diabetes. Thus patient is advised to lose weight. * Continue auto CPAP pressure at 8-12 cmH2O * Update supply prescription * Notify me if snoring with mask or feeling that the pressure is too much or too little * Attempt to lose weight * Call this office if any problems using CPAP * Return for follow up in 1 year, or sooner if concerns arise Counseling Topics: Spare mask, Weight loss health impact Prescriptions: Device supplies Follow up with Sleep Care in: 1 year Visit Type: In Office Provider Statement: I spent 100% of the Face to Face Visit with the patient with greater than 50% spent counseling the patient and coordination of care.
== END 2023-08-05 16:11 | disposition home or self-care (01) ==
LOC: SC 16:10
PROVIDERS: ATTEND Nurse Practitioner Family
DX: G47.33 Obstructive sleep apnea (adult) (pediatric) (principal); E66.9 Obesity, unspecified; Z68.32 Body mass index [BMI] 32.0-32.9, adult
CPT/HCPCS: 99212; 99213